=== PATIENT | female | born 1950 | race Caucasian/White ===

== ENCOUNTER → 2020-06-13 17:38 | Outpatient (CLI) | payer MEDICARE, OTHER, SELFPAY | PROVIDERS: Visit Provider Physician Assistant | DX: N30.01 Acute cystitis with hematuria (principal) | CPT/HCPCS: 87077; 87086 ==

== ENCOUNTER 2020-06-15 11:20 | Inpatient (IN) | payer MEDICARE, OTHER, SELFPAY ==
[2020-06-15] VITALS (13 sets, daily range): BP systolic 132–171; BP diastolic 63–83; PULSE 85–118; RESP 11–34; TEMP 36.3–36.8; O2SAT 95–97; BMI 27.6
--- NOTE | 2020-06-15 12:45 | DI.RAD.S_ITS ---
PROCEDURE: XR CHEST 1V INDICATIONS: chest pain TECHNIQUE: One view of the chest was acquired. COMPARISON: None. FINDINGS: Surgical changes and devices: None. Lungs and pleura: Lungs are clear. No pleural effusions or pneumothorax. Mediastinum: Mediastinal contours appear normal. Heart size is normal. Bones and chest wall: No suspicious bony lesions. Overlying soft tissues appear unremarkable. IMPRESSION: No acute disease. Dictated by: James Hyatt M.D. on 06/15/2020 at 13:39 Approved by: James Hyatt M.D. on 06/15/2020 at 13:57
--- NOTE | 2020-06-15 13:41 | ED.ABDPAIN ---
HPI - Abdominal Pain General Chief Complaint: Dizziness Stated Complaint: Sent from walk in clinic. symptoms are worse Time Seen by Provider: 06/15/20 13:15 Source: patient Mode of arrival: Family Vehicle Limitations: no limitations History of Present Illness HPI narrative: The patient is a 70-year-old female who presents with ongoing abdominal pain and discomfort. She was seen in the walk-in clinic initially thought to have UTI started on Cipro and Pyridium however her abdominal pain has gotten worse. She states that she stops taking some of her medication. She also complains of dizziness which is worse every time she sits up or moves on going for 4 days. She denies any chest pain shortness of breath nausea or vomiting. She denies any fever or chills. MD complaint: abdominal pain Onset (ago): day(s) Related Data Previous Rx's Medication Instructions Recorded ciprofloxacin HCl 500 mg tablet 500 mg PO BID 7 Days #14 tab 06/13/20 Allergies Allergy/AdvReac Type Severity Reaction Status Date / Time No Known Drug Allergies Allergy Verified 06/15/20 12:25 Review of Systems Review of Systems ROS Unobtainable: All systems reviewed & are unremarkable except as noted in HPI and below Constitutional Constitutional: Denies chills, Denies fever(s), Denies frequent falls, Denies headache(s), Denies lethargy and Denies weakness ENT Ears, Nose, Mouth, and Throat: Reports dizziness and Denies headache(s) Cardiovascular Cardiovascular: Denies chest pain, Denies syncope, Reports lightheadedness and Denies dyspnea Respiratory Respiratory: Denies dyspnea Gastrointestinal Gastrointestinal: Reports as per HPI, Reports abdominal pain, Reports bloating, Denies nausea and Denies vomiting Genitourinary Genitourinary: Reports as per HPI Genitourinary: Reports as per HPI Musculoskeletal Musculoskeletal: Denies back pain and Denies myalgias Integumentary/Breasts Skin/Breast: Denies pruritus, Denies erythema, Denies rash and Denies wounds Neurologic Neurologic: Reports dizziness, Denies syncope, Denies frequent falls, Denies headache(s) and Denies weakness Patient History Family History (Updated 06/15/20 @ 13:51 by Edna Madrid DO) Brother Myocardial infarction Social History household members: spouse Smoking Status: Former smoker Smoking Status: Former smoker alcohol intake frequency: 0-2 drinks per day Substance Use Type: does not use Exam Initial Vital Signs Initial Vital Signs: Vital Signs Temperature 97.3 F L 06/15/20 11:56 Pulse Rate 93 H 06/15/20 11:56 Respiratory Rate 19 06/15/20 11:56 Blood Pressure 132/83 06/15/20 11:56 Pulse Oximetry 97 06/15/20 11:56 GENERAL: Well-appearing, well-nourished and in no acute distress. HEENT: Head atraumatic,EOMI, pupils reactive CARDIOVASCULAR: Regular rate and rhythm without murmurs, rubs or gallops. RESPIRATORY: Breath sounds equal bilaterally, no wheezes rales or rhonchi. ABDOMEN: Soft, tender suprapubic pain no guarding no rebound slightly distended in the abdomen : No CVA tenderness EXTREMITIES: Normal range of motion, no clubbing or edema. Neurovascularly intact NEUROLOGICAL: Alert and oriented x4.Normal gait and speech. SKIN: Warm, dry, no laceration, no petechiae, no rashes or lesions. Course Orders Ordered: ED Orders 06/15/20 12:23 EKG-12 Lead Routine 06/15/20 12:45 XR chest 1V Stat 06/15/20 13:45 Complete Blood Count AUTO DIFF Stat Comprehensive Metabolic Panel Stat Lipase Stat Partial Thromboplastin Time Stat Prothrombin Time INR Stat Troponin & CK Cardiac Panel Stat 06/15/20 14:29 Urinalysis and Microscopic Stat 06/15/20 14:39 CT abdomen pelvis w con Stat Enoxaparin Sodium (Lovenox) 40 mg SUBCUT DAILY [facility] Sodium Chloride (Normal Saline 0.9%) 1,000 mls @ 150 mls/hr IV CONT LATRICE Last Admin: 06/15/20 15:35 Dose: 150 mls/hr Documented by: MARY Piperacillin/Tazobactam/Dextrose (Zosyn) 3.375 gm in 50 mls @ 100 mls/hr IV Q6H [facility] Ketorolac Tromethamine (Toradol) 15 mg IV Q6H PRN PRN Reason: pain Stop: 06/20/20 15:59 Morphine Sulfate (Morphine) 2 mg IV Q2HR PRN PRN Reason: Breakthrough Pain Ondansetron HCl (Zofran) 4 mg IV Q4HR PRN PRN Reason: Nausea And Vomiting Oxycodone HCl (Percolone) 5 mg PO Q4HR PRN PRN Reason: Pain, Moderate (4-6) Pantoprazole Sodium (Protonix) 40 mg IV DAILY LATRICE Discontinued Medications Piperacillin/Tazobactam/Dextrose (Zosyn) 3.375 gm in 50 mls @ 100 mls/hr IV NOW ONE Stop: 06/15/20 15:49 Last Infusion: 06/15/20 16:05 Dose: 0 mls/hr Documented by: Admin: 06/15/20 15:34 Dose: 100 mls/hr Documented by: MARY Vital Signs Vital signs: Vital Signs - 8 hr 06/15/20 11:56 06/15/20 13:22 06/15/20 13:30 Temperature 97.3 F L Pulse Rate 93 H 87 91 H Respiratory Rate 19 15 15 Blood Pressure 132/83 167/68 H Pulse Oximetry 97 97 97 06/15/20 14:00 06/15/20 14:37 06/15/20 15:00 Temperature Pulse Rate 88 98 H 85 Respiratory Rate 34 H 23 11 L Blood Pressure 136/65 Pulse Oximetry 96 95 96 06/15/20 15:30 Temperature Pulse Rate 92 H Respiratory Rate 14 Blood Pressure 171/74 H Pulse Oximetry 97 MDM - Abdominal Pain Lab Data Attestation: I reviewed the patient's lab results. Result diagrams: 06/15/20 13:45 06/15/20 13:45 Labs: Lab Results 06/15/20 06/15/20 06/15/20 Range/Units 13:45 13:45 13:45 WBC 9.2 (4.5-11.0) X10^3/uL RBC 4.83 (4.0-5.2) X10^6/uL Hgb 12.5 (12.0-16.0) g/dL Hct 38.2 (36-46) % MCV 78.9 L (80-100) fL MCH 26.0 (26-34) PG MCHC 32.9 (30-36) % RDW 14.4 (11.6-14.8) % Plt Count 359 (150-400) X10^3/uL Neut % (Auto) 67.1 (50-75) % Lymph % (Auto) 16.4 L (25-40) % [place] % (Auto) 13.0 (3-14) % Eos % (Auto) 2.7 (2-4) % Baso % (Auto) 0.8 (0-2) % Neut # (Auto) 6200 (4717-0213) /uL Lymph # (Auto) 1500 (6191-1639) /uL [place] # (Auto) 1200 H (0-900) /uL Eos # (Auto) 200 (0-450) /uL Baso # (Auto) 100 (0-100) /uL PT 13.0 H (10.1-12.7) SECONDS INR 1.1 (0.9-1.3) APTT 34 (26.4-36.2) SECONDS Sodium 139 (137-145) mmol/L Potassium 4.0 (3.4-5.1) mmol/L Chloride 101 (98-107) mmol/L Carbon Dioxide 30 (22-32) mmol/L BUN 9 (7-17) mg/dL Creatinine 0.66 (0.52-1.04) mg/dL Estimated GFR > 60.0 (>60) mL/min BUN/Creatinine Ratio 13.6 (6-22) Glucose 80 (80-110) mg/dL Calcium 9.7 (8.4-10.2) mg/dL Total Bilirubin 0.5 (0.2-1.3) mg/dL AST 78 H (14-36) IU/L ALT 72 H (<35) IU/L Alkaline Phosphatase 136 H (38-126) U/L Total Creatine Kinase 33 (30-135) U/L CK-MB (CK-2) TNP CK-MB (CK-2) Rel Index TNP Troponin I < 0.012 (0.01-0.034) ng/mL Total Protein 8.0 (6.3-8.2) g/dL Albumin 4.3 (3.5-5.0) g/dL Globulin 3.7 (1.7-4.1) g/dL Albumin/Globulin Ratio 1.2 (1.0-2.8) Lipase 143 (23-300) U/L Urine Color Urine Appearance Urine pH (4.5-8.0) Ur Specific [place] (1.000-1.035) Urine Protein (Negative) Urine Glucose (UA) (Negative) g/dL Urine Ketones (NEGATIVE) Urine Occult Blood (Negative) Urine Nitrate (Negative) Urine Bilirubin (NEGATIVE) Urine Urobilinogen (0.2) E.U./dL Ur Leukocyte Esterase (NEGATIVE) Urine RBC (0-5/HPF) Urine WBC (0-5/HPF) Ur Squamous Epith Cells (0-5/HPF) Ur Transition Epith Cell (0-5/HPF) Urine Bacteria (None) Ur Culture Indicated? COVID-19 PCR (Negative) 06/15/20 06/15/20 Range/Units 14:29 15:44 WBC (4.5-11.0) X10^3/uL RBC (4.0-5.2) X10^6/uL Hgb (12.0-16.0) g/dL Hct (36-46) % MCV (80-100) fL MCH (26-34) PG MCHC (30-36) % RDW (11.6-14.8) % Plt Count (150-400) X10^3/uL Neut % (Auto) (50-75) % Lymph % (Auto) (25-40) % [place] % (Auto) (3-14) % Eos % (Auto) (2-4) % Baso % (Auto) (0-2) % Neut # (Auto) (7880-7097) /uL Lymph # (Auto) (1196-6592) /uL [place] # (Auto) (0-900) /uL Eos # (Auto) (0-450) /uL Baso # (Auto) (0-100) /uL PT (10.1-12.7) SECONDS INR (0.9-1.3) APTT (26.4-36.2) SECONDS Sodium (137-145) mmol/L Potassium (3.4-5.1) mmol/L Chloride (98-107) mmol/L Carbon Dioxide (22-32) mmol/L BUN (7-17) mg/dL Creatinine (0.52-1.04) mg/dL Estimated GFR (>60) mL/min BUN/Creatinine Ratio (6-22) Glucose (80-110) mg/dL Calcium (8.4-10.2) mg/dL Total Bilirubin (0.2-1.3) mg/dL AST (14-36) IU/L ALT (<35) IU/L Alkaline Phosphatase (38-126) U/L Total Creatine Kinase (30-135) U/L CK-MB (CK-2) CK-MB (CK-2) Rel Index Troponin I (0.01-0.034) ng/mL Total Protein (6.3-8.2) g/dL Albumin (3.5-5.0) g/dL Globulin (1.7-4.1) g/dL Albumin/Globulin Ratio (1.0-2.8) Lipase (23-300) U/L Urine Color [place] Urine Appearance Clear Urine pH 7.0 (4.5-8.0) Ur Specific [place] <=1.005 (1.000-1.035) Urine Protein Trace H (Negative) Urine Glucose (UA) Trace H (Negative) g/dL Urine Ketones Negative (NEGATIVE) Urine Occult Blood Trace-lysed (Negative) Urine Nitrate Positive H (Negative) Urine Bilirubin Negative (NEGATIVE) Urine Urobilinogen 1.0 (0.2) E.U./dL Ur Leukocyte Esterase Negative (NEGATIVE) Urine RBC 5-10/hpf H (0-5/HPF) Urine WBC 1-5/hpf (0-5/HPF) Ur Squamous Epith Cells 1-5 /hpf (0-5/HPF) Ur Transition Epith Cell 1-5/hpf (0-5/HPF) Urine Bacteria Occasional (0-1) (None) Ur Culture Indicated? Specimen cultured COVID-19 PCR Negative (Negative) Imaging Data CT scan - abdomen/pelvis: Radiologist's Impression: PROCEDURE: CT ABDOMEN PELVIS W CON INDICATIONS: lower abdominal pain TECHNIQUE: After the administration of intravenous contrast, 5 mm thick sections acquired from the diaphragm to the symphysis. 5 mm coronal and sagittal reformats were acquired. For radiation dose reduction, the following was used: automated exposure control, adjustment of mA and/or kV according to patient size. COMPARISON: None. FINDINGS: Image quality: Excellent. ABDOMEN: Lung bases: Lung bases are clear. Heart size is normal. Solid organs: Liver is normal in size and enhancement. Gallbladder incidental cholelithiasis. . Biliary system is non dilated. Pancreas enhances normally. Spleen is normal in size and enhancement. No adrenal nodules. Kidneys demonstrate normal size and enhancement, without hydronephrosis. Colonic diverticulosis is noted. In the area of the sigmoid colon, there is short segment colonic wall thickening and small foci of extraluminal gas in an area of pericolonic inflammation and fat stranding. Findings most likely represent acute diverticulitis with small contained perforation. No definite abscess is seen. No free fluid or additional intraperitoneal free air. Normal appendix. Nodes and vessels: No retroperitoneal or mesenteric adenopathy by size criteria. Aorta and inferior vena cava are normal in size. Scattered vascular calcifications seen in the aorta. Miscellaneous: No ventral hernias. PELVIS: Genitourinary: Bladder wall thickness is normal. Miscellaneous: No inguinal hernias or adenopathy. Bones: No suspicious bony lesions. No vertebral body compression fractures. IMPRESSION: Findings likely reflect acute diverticulitis with a small contained perforation involving the sigmoid colon. Recommend clinical follow-up to determine need for endoscopy and exclusion of the underlying colonic neoplasm. Incidental cholelithiasis Dictated by: James Hyatt M.D. on 06/15/2020 at 14:47 Approved by: James Hyatt M.D. on 06/15/2020 at 14:52 ECG Data Attestation: I personally reviewed and interpreted this ECG as follows: Prior ECG tracings: not available for review Interpretation: Normal sinus rhythm rate 86 p.r. interval 167 QRS [address] changes or T-wave inversions normal intervals MDM Narrative Medical decision making narrative: Patient is found to have diverticulitis with contained perforation. She has partially treated with Cipro however she stopped taking antibiotics. Surgery Dr. Hodge is consulted and agrees with admission in recommend Zosyn at this time. Patient is not requesting or needing any pain medication. I have set patient up in she remains slightly dizzy. This seems to be orthostatic, she has no focal deficits. Discharge Plan Departure Patient Disposition: Admitted As Inpatient Clinical Impression: Diverticulitis Discharge Date/Time: 06/15/20 18:14 Admit Date/Time: 06/15/20 15:48 Admit Provider: Katya Hodge
[2020-06-15 13:51] LABS: Add Manual Diff / Slide Review NO; Basophils Absolute Auto 100 /uL (0-100); Basophils Percent Auto 0.8 % (0-2); Eosinophils Absolute Auto 200 /uL (0-450); Eosinophils Percent Auto 2.7 % (2-4); Hematocrit 38.2 % (36-46); Hemoglobin 12.5 g/dL (12.0-16.0); Lymphocytes Absolute Auto 1500 /uL (1100-4500); Lymphocytes Percent Auto 16.4 % (25-40); Mean Corpuscular HGB Conc 32.9 % (30-36); Mean Corpuscular Volume 78.9 fL (80-100); Monocytes Absolute Auto 1200 /uL (0-900); Neutrophils Absolute Auto 6200 /uL (1500-7000); Neutrophils Percent Auto 67.1 % (50-75); Platelet Count 359 X10^3/uL (150-400); Red Blood Cell Count 4.83 X10^6/uL (4.0-5.2); Red Cell Distribution Width 14.4 % (11.6-14.8); White Blood Cell Count 9.2 X10^3/uL (4.5-11.0)
[2020-06-15 14:02] LABS: INR 1.1 (0.9-1.3)
[2020-06-15 14:05] LABS: PTT Partial Thromboplastin Tim 34 SECONDS (26.4-36.2)
[2020-06-15 14:10] LABS: Alanine Aminotransferase 72 IU/L (<35); Albumin 4.3 g/dL (3.5-5.0); Albumin Globulin Ratio 1.2 (1.0-2.8); Alkaline Phosphatase 136 U/L (38-126); Aspartate Aminotransferase 78 IU/L (14-36); BUN Creatinine Ratio 13.6 (6-22); Bilirubin Total 0.5 mg/dL (0.2-1.3); Blood Urea Nitrogen 9 mg/dL (7-17); Calcium 9.7 mg/dL (8.4-10.2); Carbon Dioxide 30 mmol/L (22-32); Chloride 101 mmol/L (98-107); Creatine Kinase 33 U/L (30-135); Estimated Glomerular Filt Rate > 60.0 mL/min (>60); Globulin 3.7 g/dL (1.7-4.1); Glucose 80 mg/dL (80-110); HEMOLYSIS < 15 (0-50); Lipase 143 U/L (23-300); Sodium 139 mmol/L (137-145)
[2020-06-15 14:22] LABS: Troponin I < 0.012 ng/mL (0.01-0.034)
--- NOTE | 2020-06-15 14:33 | PC.NURSE ---
pt ambulated to bathroom well. No unsteady gait. Pt denied dizziness at this time
--- NOTE | 2020-06-15 14:39 | DI.CT.S_ITS ---
PROCEDURE: CT ABDOMEN PELVIS W CON INDICATIONS: lower abdominal pain TECHNIQUE: After the administration of intravenous contrast, 5 mm thick sections acquired from the diaphragm to the symphysis. 5 mm coronal and sagittal reformats were acquired. For radiation dose reduction, the following was used: automated exposure control, adjustment of mA and/or kV according to patient size. COMPARISON: None. FINDINGS: Image quality: Excellent. ABDOMEN: Lung bases: Lung bases are clear. Heart size is normal. Solid organs: Liver is normal in size and enhancement. Gallbladder incidental cholelithiasis. . Biliary system is non dilated. Pancreas enhances normally. Spleen is normal in size and enhancement. No adrenal nodules. Kidneys demonstrate normal size and enhancement, without hydronephrosis. Colonic diverticulosis is noted. In the area of the sigmoid colon, there is short segment colonic wall thickening and small foci of extraluminal gas in an area of pericolonic inflammation and fat stranding. Findings most likely represent acute diverticulitis with small contained perforation. No definite abscess is seen. No free fluid or additional intraperitoneal free air. Normal appendix. Nodes and vessels: No retroperitoneal or mesenteric adenopathy by size criteria. Aorta and inferior vena cava are normal in size. Scattered vascular calcifications seen in the aorta. Miscellaneous: No ventral hernias. PELVIS: Genitourinary: Bladder wall thickness is normal. Miscellaneous: No inguinal hernias or adenopathy. Bones: No suspicious bony lesions. No vertebral body compression fractures. IMPRESSION: Findings likely reflect acute diverticulitis with a small contained perforation involving the sigmoid colon. Recommend clinical follow-up to determine need for endoscopy and exclusion of the underlying colonic neoplasm. Incidental cholelithiasis Dictated by: James Hyatt M.D. on 06/15/2020 at 14:47 Approved by: James Hyatt M.D. on 06/15/2020 at 14:52
[2020-06-15] MEDS: PIPERACILLIN-TAZO 3.375 GM/50 ML FROZ.PIGGY IV ×2 (15:34→21:28)
[2020-06-15] MEDS: SODIUM CHLORIDE 0.9% 1,000 ML 150 ML IV (15:35)
--- NOTE | 2020-06-15 15:55 | PM.HP.1 ---
History of Present Illness History of Present Illness Chief complaint: Sent from walk in clinic. symptoms are worse Narrative: 70 yo woman with h/o HLD, HTN, DM2 came into ER tonight with c/o abdominal pain not improving on abx (cipro) and Pyridium which were given for UTI at urgent care two days ago. She started with what she thought was a typical UTI, but as her bladder pain and dysuria improved, she noted worsening abdominal pain. CT scan in ER shows evidence of sigmoid diverticulitis with contained perforation. Denies fevers, nausea, vomiting, melena, hematochezia. Last colonoscopy was 2016, reportedly normal. Reported dizziness in the ER. Last BM/flatus was this AM and was normal. LFT's were elevated in ER. She denies RUQ pain, jaundice, still has her gall bladder. PMH: HTN, HLD, DM2, HTN PSH: laparoscopy for ovarian cysts, pfannensteil for ectopic , colonoscopy 2017 Home meds: Losartan 100mg Metformin 500mg Crestor 10mg [place] 10mg Calcium B12 ASA 81mg Allergies: NKDA SOC: former tob quite 1990; travels in an RV with her . PCP is Willie Greene in [place]. FMH: denies family history of colorectal cancers or disorders ROS: Constitutional: Denies chills, Denies fever(s), Denies frequent falls, Denies headache(s), Denies lethargy and Denies weakness Ears, Nose, Mouth, and Throat: Reports dizziness and Denies headache(s) Cardiovascular: Denies chest pain, Denies syncope, Reports lightheadedness and Denies dyspnea Respiratory: Denies dyspnea Gastrointestinal: Reports as per HPI, Reports abdominal pain, Reports bloating, Denies nausea and Denies vomiting Musculoskeletal: Denies back pain and Denies myalgias Skin/Breast: Denies pruritus, Denies erythema, Denies rash and Denies wounds Neurologic: Reports dizziness, Denies syncope, Denies frequent falls, Denies headache(s) and Denies weakness PE: GENERAL: Alert, comfortable. Appears stated age. Answers questions promptly and appropriately. Vital signs noted. HENT: Normocephalic, atraumatic. Hearing intact. Oral mucosa is pink and moist. EYES: Conjunctiva pink, sclera white, no periorbital swelling. CARDIOVASCULAR: Regular rate. No pedal edema. RESPIRATORY: Non-tachypneic, breathing comfortably on room air. GASTROINTESTINAL: Abdomen soft and non-distended; rounded, focal TTP in LLQ; no RUQ TTP GENITALURINARY: No flank tenderness. MUSCULOSKELETAL: Equal tone and mass bilaterally. SKIN: Warm, dry, soft, appropriate color for ethnicity. No other lesions, rashes, or wounds. NEURO: Alert and Oriented X 3. No gross sensory deficits, or cognitive issues. PSYCH: Appropriate mood and affect, normal intellect Patient History Family & Social History Family History (Updated 06/15/20 @ 13:51 by Edna Madrid DO) Brother Myocardial infarction Safety & Behavioral: Feels Safe in Current Yes Environment Been Physically Hurt or No Threatened By a Person Tobacco & Substance use: Smoking Status Former smoker alcohol intake frequency 0-2 drinks per day Substance Use Type does not use Meds Home Medications and Allergies Home Medications Medication Instructions Recorded Confirmed Type ciprofloxacin HCl 500 mg tablet 500 mg PO BID 7 Days #14 tab 06/13/20 06/13/20 Rx Allergies Allergy/AdvReac Type Severity Reaction Status Date / Time No Known Drug Allergies Allergy Verified 06/15/20 12:25 Exam Vital Signs (past 8 hours): - 06/15/20 11:56 06/15/20 13:22 06/15/20 13:30 Temperature 97.3 F L Pulse Rate 93 H 87 91 H Respiratory Rate 19 15 15 Blood Pressure 132/83 167/68 H Pulse Oximetry 97 97 97 06/15/20 14:00 06/15/20 14:37 06/15/20 15:00 Temperature Pulse Rate 88 98 H 85 Respiratory Rate 34 H 23 11 L Blood Pressure 136/65 Pulse Oximetry 96 95 96 06/15/20 15:30 Temperature Pulse Rate 92 H Respiratory Rate 14 Blood Pressure 171/74 H Pulse Oximetry 97 Oxygen Delivery Method Room Air Objective Imaging CT scan - abdomen: Radiologist's impression: [address] [address] [address] Scan Report Signed Patient: Alee Monae#: [id number] : 9Acct:[id number] Age/Sex: 70 / FDate of Service: 06/15/20 Loc: ED Accession Number: [id number] Procedure: CT abdomen pelvis w con Ordering Provider: Edna Madrid D.O. PROCEDURE: CT ABDOMEN PELVIS W CON INDICATIONS: lower abdominal pain TECHNIQUE: After the administration of intravenous contrast, 5 mm thick sections acquired from the diaphragm to the symphysis. 5 mm coronal and sagittal reformats were acquired. For radiation dose reduction, the following was used: automated exposure control, adjustment of mA and/or kV according to patient size. COMPARISON: None. FINDINGS: Image quality: Excellent. ABDOMEN: Lung bases: Lung bases are clear. Heart size is normal. Solid organs: Liver is normal in size and enhancement. Gallbladder incidental cholelithiasis. . Biliary system is non dilated. Pancreas enhances normally. Spleen is normal in size and enhancement. No adrenal nodules. Kidneys demonstrate normal size and enhancement, without hydronephrosis. Colonic diverticulosis is noted. In the area of the sigmoid colon, there is short segment colonic wall thickening and small foci of extraluminal gas in an area of pericolonic inflammation and fat stranding. Findings most likely represent acute diverticulitis with small contained perforation. No definite abscess is seen. No free fluid or additional intraperitoneal free air. Normal appendix. Nodes and vessels: No retroperitoneal or mesenteric adenopathy by size criteria. Aorta and inferior vena cava are normal in size. Scattered vascular calcifications seen in the aorta. Miscellaneous: No ventral hernias. PELVIS: Genitourinary: Bladder wall thickness is normal. Miscellaneous: No inguinal hernias or adenopathy. Bones: No suspicious bony lesions. No vertebral body compression fractures. IMPRESSION: Findings likely reflect acute diverticulitis with a small contained perforation involving the sigmoid colon. Recommend clinical follow-up to determine need for endoscopy and exclusion of the underlying colonic neoplasm. Incidental cholelithiasis Dictated by: James Hyatt M.D. on 06/15/2020 at 14:47 Approved by: James Hyatt M.D. on 06/15/2020 at 14:52 Labs Result Diagrams: 06/15/20 13:45 06/15/20 13:45 Labs: Laboratory Results - last 24 hr 06/15/20 06/15/20 06/15/20 13:45 13:45 13:45 WBC 9.2 RBC 4.83 Hgb 12.5 Hct 38.2 MCV 78.9 L MCH 26.0 MCHC 32.9 RDW 14.4 Plt Count 359 Neut % (Auto) 67.1 Lymph % (Auto) 16.4 L [place] % (Auto) 13.0 Eos % (Auto) 2.7 Baso % (Auto) 0.8 Neut # (Auto) 6200 Lymph # (Auto) 1500 [place] # (Auto) 1200 H Eos # (Auto) 200 Baso # (Auto) 100 PT 13.0 H INR 1.1 APTT 34 Sodium 139 Potassium 4.0 Chloride 101 Carbon Dioxide 30 BUN 9 Creatinine 0.66 Estimated GFR > 60.0 BUN/Creatinine Ratio 13.6 Glucose 80 Calcium 9.7 Total Bilirubin 0.5 AST 78 H ALT 72 H Alkaline Phosphatase 136 H Total Creatine Kinase 33 CK-MB (CK-2) TNP CK-MB (CK-2) Rel Index TNP Troponin I < 0.012 Total Protein 8.0 Albumin 4.3 Globulin 3.7 Albumin/Globulin Ratio 1.2 Lipase 143 Assessment & Plan Assessment and plan (1) Diverticulitis: Problem details: On CT scan; treating with IV zosyn Status: Acute (2) UTI (urinary tract infection): Problem details: Zosyn will cover both Qualifiers: Hematuria presence: with hematuria Urinary tract infection type: acute cystitis Qualified Code(s): N30.01 - Acute cystitis with hematuria Status: Acute (3) DM2 (diabetes mellitus, type 2): Problem details: sliding scale insulin, will restart home Metformin when eating Status: Acute (4) HTN (hypertension): Problem details: Holding home BP med for now Status: Acute (5) HLD (hyperlipidemia): Problem details: holding home meds for now Status: Acute (6) Transaminitis: Problem details: may be due to infection/dehydration; will recheck in AM Status: Acute (7) Elevated alkaline phosphatase level: Problem details: may be due to infection/dehydration; will recheck in AM Status: Acute Assessment & Plan narrative: This is a 70 yo woman with acute diverticulitis which has not improved on Cipro. She is having dizziness and worsening abdominal pain. We will admit her for IV zosyn since she has had worsening symptoms on cipro as an outpatient. Urgent surgery is not needed based on her exam and her CT scan from the ER, but we will follow her labs and exam closely for signs of decompensation. Plan: IV fluids clear liquid diet iv zosyn PO and IV pain med prn ambulate DVT ppx GI ppx home meds Sliding scale insulin until eating regular diet Glucose checks ACHS Quality VTE Deep Vein Thrombosis/Pulmonary Embolism Present on Admission: No
[2020-06-15 18:38] LABS: Appearance Urine UA CLEAR; Bilirubin Urine UA NEGATIVE (NEGATIVE); Color Urine UA ORANGE; Glucose Urine UA TRACE g/dL (Negative); Ketones Urine UA NEGATIVE (NEGATIVE); Leukocyte Esterase Urine UA NEGATIVE (NEGATIVE); Nitrite Urine UA POSITIVE (Negative); Occult Blood Urine UA TRACE-LYSED (Negative); Protein Urine UA TRACE (Negative); Specific Gravity Urine UA <=1.005 (1.000-1.035)
[2020-06-15 18:41] LABS: COVID19 -Nasal RAPID Negative (Negative)
[2020-06-15 18:46] LABS: Bacteria Urine Occasional (0-1); Culture Indicated Urine Specimen Cultured; RBC Urine 5-10/HPF (0-5/HPF); Squamous Epithelial Cell Urine 1-5 /HPF (0-5/HPF); Transitional Epi Cells Urine 1-5/HPF (0-5/HPF); WBC Urine 1-5/HPF (0-5/HPF)
[2020-06-15] MEDS: KETOROLAC 15 MG/ML VIAL IV (19:23)
[2020-06-15] MEDS: MORPHINE 2 MG/ML INJ IV (21:33)
--- NOTE | 2020-06-15 23:27 | PC.NURSE ---
Admit/Evening Shift Note- Patient arrived to room via stretcher from ER. Admit questions done, medications reviewed, physical assessment and skin check done. Oriented patient to bed and bed controls, room, bathroom, lights, phone, menu, and call jade/tv remote. Patient alert and oriented and able to make needs known to staff. Patient pleasent, calm, and cooperative. Safety measures in place. Patient independent, but does agree to call for assistance during the night. bed alarm activated. Call jade and phone within reach. Will continue to monitor.
[2020-06-16 00:01] VITALS: BP 114/51; PULSE 71; RESP 18; TEMP 36.5; O2SAT 98
--- NOTE | 2020-06-16 00:34 | PC.NURSE ---
Patient is alert and oriented. Breath sounds CTA with RA sat of 97%. HRR. Denies nausea. BT present and abdomen is soft but mildly distended; states not having pain at present time. Denies dysuria, frequency or urgency with urination. Is independent with mobility and steady on feet. Refusing SCD's so instructed to ankle wave while awake. 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 Fall risk score is moderate; refusing to have bed alarm on so reminded to sit on edge of bed prior to getting up and if any dizziness or lightheadedness she verbalizes agreement to call for assistance.
[2020-06-16] MEDS: SODIUM CHLORIDE 0.9% 1,000 ML 150 ML IV ×3 (02:03→17:22)
[2020-06-16] MEDS: PIPERACILLIN-TAZO 3.375 GM/50 ML FROZ.PIGGY IV ×4 (03:58→22:02)
[2020-06-16 04:15] VITALS: BP 130/65; PULSE 81; RESP 18; TEMP 36.4; O2SAT 99
[2020-06-16] MEDS: KETOROLAC 15 MG/ML VIAL IV (04:22)
[2020-06-16 05:30] LABS: Add Manual Diff / Slide Review NO; Basophils Absolute Auto 0 /uL (0-100); Basophils Percent Auto 0.4 % (0-2); Eosinophils Absolute Auto 300 /uL (0-450); Eosinophils Percent Auto 3.1 % (2-4); Hematocrit 31.2 % (36-46); Hemoglobin 10.4 g/dL (12.0-16.0); Lymphocytes Absolute Auto 1700 /uL (1100-4500); Lymphocytes Percent Auto 18.6 % (25-40); Mean Corpuscular HGB Conc 33.3 % (30-36); Mean Corpuscular Hemoglobin 26.4 PG (26-34); Mean Corpuscular Volume 79.4 fL (80-100); Monocytes Absolute Auto 1300 /uL (0-900); Monocytes Percent Auto 13.8 % (3-14); Neutrophils Absolute Auto 5900 /uL (1500-7000); Neutrophils Percent Auto 64.1 % (50-75); Platelet Count 304 X10^3/uL (150-400); Red Blood Cell Count 3.93 X10^6/uL (4.0-5.2); Red Cell Distribution Width 14.4 % (11.6-14.8); White Blood Cell Count 9.1 X10^3/uL (4.5-11.0)
[2020-06-16 05:35] LABS: Alanine Aminotransferase 53 IU/L (<35); Albumin 3.2 g/dL (3.5-5.0); Albumin Globulin Ratio 1.1 (1.0-2.8); Alkaline Phosphatase 102 U/L (38-126); Aspartate Aminotransferase 48 IU/L (14-36); Bilirubin Total 0.5 mg/dL (0.2-1.3); Bilirubin Unconjugated 0.3 mg/dL (0.0-1.1); Globulin 2.9 g/dL (1.7-4.1); HEMOLYSIS < 15 (0-50); Total Protein 6.1 g/dL (6.3-8.2)
[2020-06-16 05:42] LABS: BUN Creatinine Ratio 10.8 (6-22); Blood Urea Nitrogen 8 mg/dL (7-17); Calcium 8.2 mg/dL (8.4-10.2); Carbon Dioxide 27 mmol/L (22-32); Chloride 105 mmol/L (98-107); Estimated Glomerular Filt Rate > 60.0 mL/min (>60); Glucose 101 mg/dL (80-110); HEMOLYSIS < 15 (0-50); Magnesium 2.1 mg/dL (1.6-2.3); Potassium 3.8 mmol/L (3.4-5.1); Sodium 137 mmol/L (137-145)
[2020-06-16 08:00] VITALS: BP 156/76; PULSE 68; RESP 19; TEMP 36.8; O2SAT 97
[2020-06-16] MEDS: ENOXAPARIN 40 MG/0.4 ML SYRINGE SUBCUT (10:16)
[2020-06-16] MEDS: PANTOPRAZOLE 40 MG VIAL IV (10:16)
--- NOTE | 2020-06-16 10:28 | P.PN_ITS ---
Subjective Subjective Date Patient Seen: 06/16/20 Time Patient Seen: 10:28 Interval history: The patient is under treatment for diverticulitis. She was being treated as an outpatient on a Floxin without improvement. She was brought in for IV antibiotics. Today she says she feels much better. She was awake last night had trouble sleeping. She was uncomfortable but now she feels fine. She says she has a little bit of discomfort mostly in the right lower abdomen. She has not been passing gas or had a bowel movement yet. She would like something to help her sleep tonight. No nausea or vomiting. Exam Vital Signs (past 8 hours): - 06/16/20 04:15 06/16/20 08:00 Temperature 97.6 F 98.2 F Pulse Rate 81 68 Respiratory Rate 18 19 Blood Pressure 130/65 156/76 H Pulse Oximetry 99 97 Oxygen Delivery Method Room Air Oxygen Flow Rate 0 Narrative Exam Narrative: Lungs are clear to auscultation no rales or rhonchi. Heart regular rate and rhythm. She has a 2/6 high-pitched blowing murmur systolic heard best at the left sternal base.(patient states she is under cardiology care for this). Her abdomen is protuberant soft. She describes tenderness when exam the right lower quadrant but she does not wince or guard. With vigorous shaking of the abdomen she has no symptoms. No other area is tender. Objective Labs Result Diagrams: 06/16/20 04:54 06/16/20 04:54 Labs: Laboratory Results - last 24 hr 06/15/20 06/15/20 06/15/20 13:45 13:45 13:45 WBC 9.2 RBC 4.83 Hgb 12.5 Hct 38.2 MCV 78.9 L MCH 26.0 MCHC 32.9 RDW 14.4 Plt Count 359 Neut % (Auto) 67.1 Lymph % (Auto) 16.4 L [place] % (Auto) 13.0 Eos % (Auto) 2.7 Baso % (Auto) 0.8 Neut # (Auto) 6200 Lymph # (Auto) 1500 [place] # (Auto) 1200 H Eos # (Auto) 200 Baso # (Auto) 100 PT 13.0 H INR 1.1 APTT 34 Sodium 139 Potassium 4.0 Chloride 101 Carbon Dioxide 30 BUN 9 Creatinine 0.66 Estimated GFR > 60.0 BUN/Creatinine Ratio 13.6 Glucose 80 Calcium 9.7 Magnesium Total Bilirubin 0.5 Conjugated Bilirubin Unconjugated Bilirubin AST 78 H ALT 72 H Alkaline Phosphatase 136 H Total Creatine Kinase 33 CK-MB (CK-2) TNP CK-MB (CK-2) Rel Index TNP Troponin I < 0.012 Total Protein 8.0 Albumin 4.3 Globulin 3.7 Albumin/Globulin Ratio 1.2 Lipase 143 Urine Color Urine Appearance Urine pH Ur Specific [place] Urine Protein Urine Glucose (UA) Urine Ketones Urine Occult Blood Urine Nitrate Urine Bilirubin Urine Urobilinogen Ur Leukocyte Esterase Urine RBC Urine WBC Ur Squamous Epith Cells Ur Transition Epith Cell Urine Bacteria Ur Culture Indicated? COVID-19 PCR 06/15/20 06/15/20 06/16/20 14:29 15:44 04:54 WBC RBC Hgb Hct MCV MCH MCHC RDW Plt Count Neut % (Auto) Lymph % (Auto) [place] % (Auto) Eos % (Auto) Baso % (Auto) Neut # (Auto) Lymph # (Auto) [place] # (Auto) Eos # (Auto) Baso # (Auto) PT INR APTT Sodium Potassium Chloride Carbon Dioxide BUN Creatinine Estimated GFR BUN/Creatinine Ratio Glucose Calcium Magnesium Total Bilirubin 0.5 Conjugated Bilirubin 0.0 Unconjugated Bilirubin 0.3 AST 48 H ALT 53 H Alkaline Phosphatase 102 Total Creatine Kinase CK-MB (CK-2) CK-MB (CK-2) Rel Index Troponin I Total Protein 6.1 L Albumin 3.2 L Globulin 2.9 Albumin/Globulin Ratio 1.1 Lipase Urine Color [place] Urine Appearance Clear Urine pH 7.0 Ur Specific [place] <=1.005 Urine Protein Trace H Urine Glucose (UA) Trace H Urine Ketones Negative Urine Occult Blood Trace-lysed Urine Nitrate Positive H Urine Bilirubin Negative Urine Urobilinogen 1.0 Ur Leukocyte Esterase Negative Urine RBC 5-10/hpf H Urine WBC 1-5/hpf Ur Squamous Epith Cells 1-5 /hpf Ur Transition Epith Cell 1-5/hpf Urine Bacteria Occasional (0-1) Ur Culture Indicated? Specimen cultured COVID-19 PCR Negative 06/16/20 06/16/20 04:54 04:54 WBC 9.1 RBC 3.93 L Hgb 10.4 L Hct 31.2 L MCV 79.4 L MCH 26.4 MCHC 33.3 RDW 14.4 Plt Count 304 Neut % (Auto) 64.1 Lymph % (Auto) 18.6 L [place] % (Auto) 13.8 Eos % (Auto) 3.1 Baso % (Auto) 0.4 Neut # (Auto) 5900 Lymph # (Auto) 1700 [place] # (Auto) 1300 H Eos # (Auto) 300 Baso # (Auto) 0 PT INR APTT Sodium 137 Potassium 3.8 Chloride 105 Carbon Dioxide 27 BUN 8 Creatinine 0.74 Estimated GFR > 60.0 BUN/Creatinine Ratio 10.8 Glucose 101 Calcium 8.2 L Magnesium 2.1 Total Bilirubin Conjugated Bilirubin Unconjugated Bilirubin AST ALT Alkaline Phosphatase Total Creatine Kinase CK-MB (CK-2) CK-MB (CK-2) Rel Index Troponin I Total Protein Albumin Globulin Albumin/Globulin Ratio Lipase Urine Color Urine Appearance Urine pH Ur Specific [place] Urine Protein Urine Glucose (UA) Urine Ketones Urine Occult Blood Urine Nitrate Urine Bilirubin Urine Urobilinogen Ur Leukocyte Esterase Urine RBC Urine WBC Ur Squamous Epith Cells Ur Transition Epith Cell Urine Bacteria Ur Culture Indicated? COVID-19 PCR Assessment & Plan Assessment & Plan narrative: Patient improving with IV Zosyn. Given the nature of the abnormality on her CT that is a an interloop perforation she may well form an interloop abscess. Right now it is contained based on the CT scan. Will continue her IV antibiotics. I will advance her diet. She has been tolerating clear liquids well. Will place her on a full liquid diet. Will give her the requested med for sleep. Sugars are under control. Will continue to monitor. Continue her blood pressure medication. Will add back her Crestor for treatment of her lipid disorder. CBC in the a.m.. Patient has incidental gallstones noted on her CT scan. Do not recommend any treatment for that process at this time. They appear to be asymptomatic. Will slow IV fluids. Patient is also noted to have anemia. This is probably a chronic condition and not related to acute blood loss. Cause is unclear. May warrant further investigation as an outpatient. Given findings on CT patient will ultimately come to a colonoscopy at some point in the future but probably not in this acute phase. Quality VTE Deep Vein Thrombosis/Pulmonary Embolism Present on Admission: No
[2020-06-16] MEDS: LOSARTAN 50 MG TABLET 100 MG PO (10:49)
[2020-06-16 12:21] VITALS: BP 144/68; PULSE 70; RESP 19; TEMP 36.4; O2SAT 94
--- NOTE | 2020-06-16 14:32 | CM.DANOTE ---
Discharge Planning/Care Management DCP: assessment: case received, EMR reviewed and went to room to check in with pt. Pt was found lying in dark, looks like she is sleeping deeply and confirmed same with SALUD Shaffer: decision made to meeting pt face to face today as need certainly not urgent. Pt is a 70 year old female who is traveling with her in an RV. They live in [place] and her PCP is there also: Dr. Willie Greene Payer: Medicare and [employer]. Admission status: INPT: per UR SALUD Burns Pt admitted urgently to care of [facility] after failing treatment given to her [facility]. DX: sigmoid diverticulitis with contained perforation. Dr. Galvin saw pt today, noted improvement and has advanced pt's diet to full liguids. P: likely home soon once stable for same and with prn outpt followup. Will check in again tomorrow. CM Discharge Assessment Start: 06/16/20 14:29 Freq: Status: Active Protocol: Document 06/16/20 14:30 ITV (Rec: 06/16/20 14:32 ITV [id number]) Discharge Planning Assessment Advance Directives? No Advance Directives on File No History Provided By Medical Record Prior Living Arrangements RV Comment traveling with her in RV. They live in [place] Household Members spouse Review Status In Process
--- NOTE | 2020-06-16 15:01 | PC.NURSE ---
Am shift, Nausea and pain improved, diet advanced to full liquid this shift. Tolerating well. 1400-Pt did report x3 loose stooling, with urgency. per Pt, better, no further bms Pt tolerating all care with good spirits. plan to reasses in AM, Pt is eager to get home and spouse is in room , understanding. IVF infusing. Indep in room
[2020-06-16 15:10] VITALS: BP 134/68; PULSE 85; RESP 16; TEMP 36.9; O2SAT 99
[2020-06-16 19:10] VITALS: BP 139/71; PULSE 84; RESP 16; TEMP 36.9; O2SAT 97
[2020-06-16] MEDS: EZETIMIBE 10 MG TABLET PO (22:01)
[2020-06-16] MEDS: ROSUVASTATIN 10 MG TABLET 20 MG PO (22:01)
[2020-06-16] MEDS: TEMAZEPAM 15 MG CAPSULE 30 MG PO (22:02)
[2020-06-17] MEDS: PIPERACILLIN-TAZO 3.375 GM/50 ML FROZ.PIGGY IV ×2 (03:32→09:54)
[2020-06-17] MEDS: SODIUM CHLORIDE 0.9% 1,000 ML 42 ML IV (03:34)
[2020-06-17 03:46] VITALS: BP 142/62; PULSE 76; RESP 16; TEMP 36.9; O2SAT 97
--- NOTE | 2020-06-17 03:54 | PC.NURSE ---
Patient has been asleep since start of shift, now awakened for assessment and vital signs. Is alert and oriented. Breath sounds CTA with RA sat of 97%. HRR with murmur; BP 142/62. Denies nausea. BT present and abdomen is soft; denies tenderness/pain. Has had no further episodes of diarrhea this shift. Denies dysuria, frequency or urgency with urination. Independent with mobility and is steady on her feet. Refuses SCD's so reminded to ankle wave. Fall risk score is moderate; patient reminded to call for assistance if experiencing any dizziness or lightheadedness. Also verbalizes she always puts light on in room prior to getting out of bed.
[2020-06-17 05:44] LABS: Add Manual Diff / Slide Review NO; Basophils Absolute Auto 100 /uL (0-100); Basophils Percent Auto 0.6 % (0-2); Eosinophils Absolute Auto 300 /uL (0-450); Eosinophils Percent Auto 3.5 % (2-4); Hematocrit 33.3 % (36-46); Hemoglobin 10.9 g/dL (12.0-16.0); Lymphocytes Absolute Auto 1500 /uL (1100-4500); Lymphocytes Percent Auto 18.4 % (25-40); Mean Corpuscular HGB Conc 32.7 % (30-36); Mean Corpuscular Hemoglobin 25.9 PG (26-34); Mean Corpuscular Volume 79.3 fL (80-100); Monocytes Absolute Auto 1100 /uL (0-900); Monocytes Percent Auto 13.2 % (3-14); Neutrophils Absolute Auto 5400 /uL (1500-7000); Neutrophils Percent Auto 64.3 % (50-75); Platelet Count 327 X10^3/uL (150-400); Red Blood Cell Count 4.19 X10^6/uL (4.0-5.2); Red Cell Distribution Width 14.1 % (11.6-14.8); White Blood Cell Count 8.4 X10^3/uL (4.5-11.0)
[2020-06-17 05:54] LABS: BUN Creatinine Ratio 4.2 (6-22); Blood Urea Nitrogen 3 mg/dL (7-17); Calcium 8.8 mg/dL (8.4-10.2); Carbon Dioxide 26 mmol/L (22-32); Chloride 109 mmol/L (98-107); Estimated Glomerular Filt Rate > 60.0 mL/min (>60); Glucose 101 mg/dL (80-110); HEMOLYSIS < 15 (0-50); Magnesium 2.2 mg/dL (1.6-2.3); Sodium 142 mmol/L (137-145)
[2020-06-17 07:38] VITALS: BP 150/72; PULSE 77; RESP 20; TEMP 36.8; O2SAT 97
[2020-06-17] MEDS: PANTOPRAZOLE 40 MG VIAL IV (08:38)
[2020-06-17] MEDS: LOSARTAN 50 MG TABLET 100 MG PO (08:38)
[2020-06-17] MEDS: ENOXAPARIN 40 MG/0.4 ML SYRINGE SUBCUT (08:38)
--- NOTE | 2020-06-17 11:36 | P.DS_ITS ---
History of Present Illness History of Present Illness Date Patient Seen: 06/17/20 Time Patient Seen: 11:38 Chief complaint: Sent from walk in clinic. symptoms are worse Narrative: 70-year-old his woman with a history of diabetes who was treated for a presumed urinary tract infection with Cipro. She had worsening of her abdominal pain present to the emergency room was found to have a small contained perforation of her sigmoid colon. She was admitted to the hospital for IV antibiotics. Discharge Providers Provider Date of admission: 06/15/20 15:48 Discharge Date: 06/17/20 Discharge provider: Javier Palafox MD Summary Hospital Course Discharge Diagnosis: Diverticulitis Hospital Course: She was treated with Zosyn and had resolution of acute diverticulitis. Diet was gradually advanced. At discharge she is tolerating a regular diet, is without abdominal pain, nausea, or vomiting. She is passing flatus, WBC 8 and afebrile. Status at Discharge Cognitive/behavioral status at discharge: oriented Functional status at discharge: independent ambulation Time Spent with Patient Time spent: Greater than 30 minutes Exam Vital Signs (past 8 hours): - 06/17/20 03:46 06/17/20 07:38 Temperature 98.4 F 98.2 F Pulse Rate 76 77 Respiratory Rate 16 20 Blood Pressure 142/62 H 150/72 H Pulse Oximetry 97 97 Oxygen Delivery Method Room Air Oxygen Flow Rate 0 Narrative Exam Narrative: General adult female alert oriented no acute distress Chest nonlabored respirations Abdomen soft nontender nondistended Objective Labs Result Diagrams: 06/17/20 05:07 06/17/20 05:07 Labs: Laboratory Results - last 24 hr 06/17/20 06/17/20 05:07 05:07 WBC 8.4 RBC 4.19 Hgb 10.9 L Hct 33.3 L MCV 79.3 L MCH 25.9 L MCHC 32.7 RDW 14.1 Plt Count 327 Neut % (Auto) 64.3 Lymph % (Auto) 18.4 L [place] % (Auto) 13.2 Eos % (Auto) 3.5 Baso % (Auto) 0.6 Neut # (Auto) 5400 Lymph # (Auto) 1500 [place] # (Auto) 1100 H Eos # (Auto) 300 Baso # (Auto) 100 Sodium 142 Potassium 4.0 Chloride 109 H Carbon Dioxide 26 BUN 3 L Creatinine 0.72 Estimated GFR > 60.0 BUN/Creatinine Ratio 4.2 L Glucose 101 Calcium 8.8 Magnesium 2.2 Discharge Plan Discharge Plan Patient Disposition: Home Discharge orders & Medications Prescriptions: New levofloxacin 750 mg tablet 750 mg PO DAILY Qty: 7 RF: 0 metronidazole [Flagyl] 500 mg tablet 500 mg PO TID Qty: 21 RF: 0 Continued ezetimibe 10 mg Tablet 10 mg PO DAILY RF: 0 metformin 500 mg Tablet 500 mg PO BID RF: 0 losartan 100 mg Tablet 100 mg PO DAILY RF: 0 rosuvastatin [Crestor] 20 mg tablet 20 mg PO BEDTIME RF: 0 Discontinued ciprofloxacin HCl 500 mg tablet 500 mg PO BID 7 Days Qty: 14 RF: 0 Follow up/Referrals: Katya Hodge MD [Physician] - (F/u 1 week) Diet/Activity/Treatments Diet: Regular Skin/Wound/Dressing Care Report to your healthcare provider any signs of infection, such as:: chills, fever and increased pain Quality VTE Deep Vein Thrombosis/Pulmonary Embolism Present on Admission: No
--- NOTE | 2020-06-17 12:09 | PC.NURSE ---
Patient denies pain. Her bowel tones are positive and she is up moving independently. Blood sugars both within normal limits and she has showered. Patient has been discharged from the hospital and will be leaving at 1300. will be picking her up.
--- NOTE | 2020-06-17 13:38 | CM.DPC ---
DCP: continued. Case discussed in Team Rounds with RN coordinator noting that pt did well with diet advancement and was expected to d/c to home setting today. A check in now shows that pt did leave as planned in company of her .
== END 2020-06-17 13:15 | disposition home or self-care (01) | DRG 392 ==
LOC: ED 15:21 → AC 15:48
PROVIDERS: Admitting Provider Surgery; Emergency Provider Emergency Medicine; Referring Provider Emergency Medicine; Visit Provider Surgery
DX: K57.92 Diverticulitis of intestine, part unspecified, without perforation or abscess without bleeding (principal); N30.01 Acute cystitis with hematuria; R74.0 Nonspecific elevation of levels of transaminase and lactic acid dehydrogenase [LDH]; I10 Essential (primary) hypertension; E78.5 Hyperlipidemia, unspecified; E11.9 Type 2 diabetes mellitus without complications; Z79.84 Long term (current) use of oral hypoglycemic drugs; Z87.891 Personal history of nicotine dependence; Z11.59 Encounter for screening for other viral diseases
CPT/HCPCS: 36415; 71045; 74177; 80048; 80053; 80076; 81001; 82550; 82962; 83690; 83735; 84484; 85025; 85610; 85730; 87077; 87086; 87635; 93005; 93010; 96361; 96365; 99222; 99232; 99238; 99284; C9113; J1650; J1885; J2270; J2543; Q9967

== ENCOUNTER → 2021-03-29 13:52 | Outpatient (CLI) | payer MEDICARE, OTHER, SELFPAY ==
[2020-06-27 10:06] VITALS: BMI 27.6
--- NOTE | 2021-03-29 13:53 | DI.RAD.S_ITS ---
PROCEDURE: XR SHOULDER RT MIN 2V INDICATIONS: Right Shoulder pain TECHNIQUE: 3 views of the shoulder were acquired. COMPARISON: None. FINDINGS: Bones: No fractures or dislocations. [id number] acromioclavicular joint osteoarthritis is seen. No suspicious bony lesions. Visualized ribs appear intact. Soft tissues: No suspicious soft tissue calcifications. IMPRESSION: No acute right shoulder fracture or dislocation. 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 Dictated by: Kirby Christian M.D. on 03/29/2021 at 14:25 Approved by: Kirby Christian M.D. on 03/29/2021 at 14:25
== END ==
PROVIDERS: Referring Provider Physician Assistant; Visit Provider Physician Assistant
DX: M25.519 Pain in unspecified shoulder (principal)
CPT/HCPCS: 73030

== ENCOUNTER → 2021-03-30 11:02 | Outpatient (CLI) | payer MEDICARE, OTHER, SELFPAY ==
[2020-06-27 10:06] VITALS: BMI 27.6
--- NOTE | 2021-03-30 11:05 | DI.RAD.S_ITS ---
PROCEDURE: XR HUMERUS RT 2V INDICATIONS: right shoulder pain TECHNIQUE: 2 views of the humerus were acquired. COMPARISON: None. FINDINGS: Bones: No fractures or dislocations. No suspicious bony lesions. Soft tissues: No suspicious soft tissue calcifications. IMPRESSION: Mild AC joint osteoarthritis, no trauma found. Dictated by: Romulo Benítez M.D. on 03/30/2021 at 10:57 Approved by: Romulo Benítez M.D. on 03/30/2021 at 10:58
== END ==
PROVIDERS: Referring Provider Physician Assistant; Visit Provider Physician Assistant
DX: M25.551 Pain in right hip (principal)
CPT/HCPCS: 73060